=== PATIENT | female | born 1975 | race Caucasian/White ===

== ENCOUNTER → 2018-06-25 | Outpatient (CLI) | payer BC ==
[2018-06-25 12:26] LABS: Calcium 10.2 mg/dL (8.4-10.2); Carbon Dioxide 29 mmol/L (22-30); Chloride 105 mmol/L (98-107); Phosphorus 4.1 mg/dL (2.5-4.5); Uric Acid 3.3 mg/dL (3.7-7.4)
== END | disposition home or self-care (01) ==
LOC: LABWHC1 11:40
PROVIDERS: ATTEND Urology
DX: N20.0 Calculus of kidney (principal)
CPT/HCPCS: 36415; 82310; 82374; 82435; 82565; 83970; 84100; 84550

== ENCOUNTER → 2018-06-27 | Outpatient (CLI) | payer BC ==
[2018-06-27 13:36] LABS: Calcium 9.9 mg/dL (8.4-10.2); Carbon Dioxide 29 mmol/L (22-30); Chloride 104 mmol/L (98-107); Phosphorus 4.1 mg/dL (2.5-4.5)
[2018-06-27 17:04] LABS: Creatinine 24 Hour,Urine 998.8 mg/24hr (800.0-1800.0)
== END | disposition home or self-care (01) ==
LOC: LABWHC1 12:24
PROVIDERS: ATTEND Urology
DX: N20.0 Calculus of kidney (principal)
CPT/HCPCS: 36415; 81050; 82310; 82340; 82374; 82435; 82565; 82570; 83735; 83945; 83970; 84100; 84300; 84550; 84560

== ENCOUNTER → 2021-02-24 | Outpatient (CLI) | payer BC ==
--- NOTE | 2021-02-24 12:49 | US ---
EXAMINATION TYPE: US venous doppler duplex LE RT DATE OF EXAM: 02/24/2021 11:58 AM COMPARISON: NONE CLINICAL HISTORY: I80.9 PHLEBITIS AND THROMBOPHLEBITIS. Pain SIDE PERFORMED: Right TECHNIQUE: The lower extremity deep venous system is examined utilizing real time linear array sonog jayro with graded compression, doppler sonography and color-flow sonography. VESSELS IMAGED: Common Femoral Vein Deep Femoral Vein Greater Saphenous Vein * Femoral Vein Popliteal Vein Small Saphenous Vein * Proximal Calf Veins (* superficial vessels) Right Leg: Negative for DVT IMPRESSION: 1. No evidence of deep venous thrombosis in the right lower extremity.
== END | disposition home or self-care (01) ==
LOC: RADUSWWP 11:25
PROVIDERS: ATTEND Orthopaedic Surgery
DX: I80.9 Phlebitis and thrombophlebitis of unspecified site (principal)

== ENCOUNTER 2022-05-15 22:08 | Emergency (ER) | payer BC, OTHER ==
[2022-05-15 22:54] VITALS: BP 122/81; PULSE 76; RESP 18; TEMP 98
--- NOTE | 2022-05-16 01:32 | ED ---
Extremity Problem HPI - General Chief complaint: Extremity Problem,Nontraumatic Stated complaint: Left Knee and auguste pain Time Seen by Provider: 05/16/22 01:21 Source: patient, RN notes reviewed Mode of arrival: ambulatory Limitations: no limitations - History of Present Illness Initial comments: Patient presents to the right side prior left knee pain which has been present for 2 weeks. 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 Patient states she is getting some popping and locking sensations. Patient states she is now getting some pain and tenderness in her calf area. She is also complaining of some swelling distally. Patient states she also is getting some pain in the right lower leg but believes this is because she is been favoring the left leg. Patient denies any hip or ankle pain. Patient denies any direct trauma. No history of arthritis. No history of rheumatoid arthritis or inflammatory arthritis. Patient denying any pain in other joints. - Related Data Home Medications Medication Instructions Recorded Confirmed Naproxen [Naprosyn] 375 mg PO Q12HR 06/13/15 06/13/15 Previous Rx's Medication Instructions Recorded Hydrocortisone/Pramoxine 1 applicate RECTAL QID PRN #1 06/13/15 [Proctofoam-Hc 1%-1% Foam] bottle Ketorolac [Toradol] 10 mg PO Q6HR #20 tab 06/13/15 Acetaminophen Tab [Tylenol Tab] 500 mg PO Q6H PRN #24 tablet 05/16/22 Naproxen [Naprosyn] 375 mg PO Q12HR PRN #20 tablet 05/16/22 Allergies Allergy/AdvReac Type Severity Reaction Status Date / Time Penicillins Allergy Unknown Verified 05/15/22 22:54 Review of Systems ROS Statement: Those systems with pertinent positive or pertinent negative responses have been documented in the HPI. ROS Other: All systems not noted in ROS Statement are negative. Past Medical History Additional Past Medical History / Comment(s): brain tumor History of Any Multi-Drug Resistant Organisms: None Reported Past Surgical History: Appendectomy, Cholecystectomy, Tubal Ligation Additional Past Surgical History / Comment(s): D&C Past Psychological History: No Psychological Hx Reported Smoking Status: Never smoker Past Alcohol Use History: None Reported Past Drug Use History: None Reported General Exam Limitations: no limitations General appearance: alert, in no apparent distress Head exam: Present: atraumatic, normocephalic, normal inspection Eye exam: Present: normal appearance, PERRL, EOMI. Absent: scleral icterus, conjunctival injection, periorbital swelling ENT exam: Present: normal exam, mucous membranes moist Neck exam: Present: normal inspection, full ROM. Absent: tenderness, meningismus, lymphadenopathy Respiratory exam: Present: normal lung sounds bilaterally. Absent: respiratory distress, wheezes, rales, rhonchi, stridor Cardiovascular Exam: Present: regular rate, normal rhythm, normal heart sounds. Absent: systolic murmur, diastolic murmur, rubs, gallop, clicks GI/Abdominal exam: Present: soft, normal bowel sounds. Absent: distended, tenderness, guarding, rebound, rigid Extremities exam: Present: normal inspection, full ROM, tenderness (Tender about the left knee and somewhat distally into the calf area.), normal capillary refill, pedal edema (Scant bilateral edema), calf tenderness (Left calf), other (No right knee or calf tenderness, no erythema, full range of motion with pain). Absent: joint swelling Left Hip exam: Present: normal inspection, full ROM. Absent: tenderness Upper Leg exam: Present: normal inspection Knee exam: Present: full ROM, tenderness, swelling, full knee extension. Absent: abrasion, laceration, ecchymosis, deformity, crepitus, dislocation, erythema, effusion, posterior draw sign, pain/laxity with valgus, pain/laxity with varus Lower Leg exam: Present: normal inspection, tenderness. Absent: full ROM, abrasion, laceration, ecchymosis, deformity, crepitus, dislocation, erythema, palpable cord, Homans' sign Ankle exam: Present: normal inspection, full ROM, tenderness. Absent: swelling, ecchymosis, erythema Foot/Toe exam: Present: normal inspection, full ROM. Absent: tenderness, swelling, abrasion, ecchymosis, erythema Neurovascular tendon exam: Present: no vascular compromise. Absent: pulse deficit, abnormal cap refill, motor deficit, pallor, abnormal 2-point discrimination, decreased fine/light touch, foot drop Back exam: Present: normal inspection. Absent: rash noted Neurological exam: Present: alert, oriented X3, CN II-XII intact Psychiatric exam: Present: normal affect, normal mood Skin exam: Present: warm, dry, intact, normal color. Absent: rash Course Vital Signs 05/15/22 22:52 Temperature 98 F Pulse Rate 76 Respiratory 18 Rate Blood Pressure 122/81 O2 Sat by Pulse 100 Oximetry Medical Decision Making - Medical Decision Making Central G appears to be musculoskeletal in origin. Patient is getting some clicking sensations which does bring into play pathology such as meniscus injury. Patient does have some swelling about the knee. This does not appear to be infectious in etiology. Patient has full range of motion with both passive and active range of motion. This does increase the pain. No skin rashes or lesions. Mild calf tenderness. I think this is unlikely to be DVT. However we'll add on a d-dimer as ultrasound is not here. We will also check inflammatory markers. Does not appear to be consistent with gouty arthritis or infectious arthritis. Patient's d-dimer is negative. Patient does have a small joint effusion noted. Again, no evidence of infectious process. We'll apply an immobilizer. Patient will be given work restrictions. Follow-up with orthopedics. Patient was told to return to the ER for any signs or symptoms worsen. Told to return immediately if any other problems arise. All questions answered. Treatment plan discussed. Patient in agreement Every effort has been made to ensure accuracy of this dictation. However, due to the limitations of electronic medical records and dictation devices, errors in charting still occur. Superintendent Laundry Dr. Verde - Lab Data Result diagrams: 05/16/22 01:46 05/16/22 01:46 Lab Results 05/16/22 05/16/22 05/16/22 Range/Units 01:46 01:46 02:21 WBC 6.8 (3.8-10.6) k/uL RBC 4.27 (3.80-5.40) m/uL Hgb 13.3 (11.4-16.0) gm/dL Hct 41.0 (34.0-46.0) % MCV 96.0 (80.0-100.0) fL MCH 31.2 (25.0-35.0) pg MCHC 32.5 (31.0-37.0) g/dL RDW 12.8 (11.5-15.5) % Plt Count 192 (150-450) k/uL MPV 8.4 Neutrophils % 53 % Lymphocytes % 36 % Monocytes % 3 % Eosinophils % 6 % Basophils % 1 % Neutrophils # 3.6 (1.3-7.7) k/uL Lymphocytes # 2.5 (1.0-4.8) k/uL Monocytes # 0.2 (0-1.0) k/uL Eosinophils # 0.4 (0-0.7) k/uL Basophils # 0.1 (0-0.2) k/uL ESR 5 (0-20) mm/hr D-Dimer <0.17 (<0.60) mg/L FEU Sodium 137 (137-145) mmol/L Potassium 3.7 (3.5-5.1) mmol/L Chloride 102 (98-107) mmol/L Carbon Dioxide 27 (22-30) mmol/L Anion Gap 8 mmol/L BUN 21 H (7-17) mg/dL Creatinine 0.93 (0.52-1.04) mg/dL Est GFR (CKD-EPI)AfAm 85 (>60 ml/min/1.73 sqM) Est GFR (CKD-EPI)NonAf 74 (>60 ml/min/1.73 sqM) Glucose 85 (74-99) mg/dL Uric Acid 3.8 (3.7-7.4) mg/dL Calcium 9.3 (8.4-10.2) mg/dL C-Reactive Protein <0.5 (<1.0) mg/dL - Radiology Data Radiology results: report reviewed, image reviewed Disposition Clinical Impression: Knee effusion, left, Left leg pain Disposition: HOME SELF-CARE Condition: Good Instructions (If sedation given, give patient instructions): Swollen Knee Joint (ED) Additional Instructions: return to the ER immediately if any symptoms worsen, new symptoms arise, or any other problems develop. Follow-up with the orthopedic physician as directed. Prescriptions: Naproxen [Naprosyn] 375 mg PO Q12HR PRN #20 tablet PRN Reason: Pain Acetaminophen Tab [Tylenol Tab] 500 mg PO Q6H PRN #24 tablet PRN Reason: Pain Is patient prescribed a controlled substance at d/c from ED?: No Referrals: Renny Alvarado MD [Primary Care Provider] - 1-2 days Maddy Ceballos DO [Doctor of Osteopathic Medicine] - 05/22/22 Time of Disposition: 03:17
[2022-05-16 02:02] LABS: Basophils # (A) 0.1 k/uL (0-0.2); Basophils % (A) 1 %; Eosinophils # (A) 0.4 k/uL (0-0.7); Eosinophils % (A) 6 %; HGB 13.3 gm/dL (11.4-16.0); Lymphocytes # (A) 2.5 k/uL (1.0-4.8); Lymphocytes % (A) 36 %; MCH 31.2 pg (25.0-35.0); MCHC 32.5 g/dL (31.0-37.0); Mean Platelet Volume 8.4; Monocytes # (A) 0.2 k/uL (0-1.0); Monocytes % (A) 3 %; Neutrophils # (A) 3.6 k/uL (1.3-7.7); Neutrophils % (A) 53 %; Platelet Count 192 k/uL (150-450); RBC 4.27 m/uL (3.80-5.40); RDW 12.8 % (11.5-15.5); WBC 6.8 k/uL (3.8-10.6)
--- NOTE | 2022-05-16 02:07 | XR ---
EXAMINATION TYPE: XR knee complete LT DATE OF EXAM: 05/16/2022 COMPARISON: NONE HISTORY: Knee pain and swelling TECHNIQUE: 3 views FINDINGS: There is no evidence of fracture nor dislocation. There is small knee joint effusion. Joint spaces are fairly normal. IMPRESSION: Small knee joint effusion. No fracture.
[2022-05-16 02:28] LABS: African American GFR (CKD) 85 (>60 ml/min/1.73 sqM); Anion Gap 8 mmol/L; Blood Urea Nitrogen 21 mg/dL (7-17); C Reactive Protein <0.5 mg/dL (<1.0); Calcium 9.3 mg/dL (8.4-10.2); Carbon Dioxide 27 mmol/L (22-30); Chloride 102 mmol/L (98-107); Glucose 85 mg/dL (74-99); Non-African American GFR(CKD) 74 (>60 ml/min/1.73 sqM); Potassium 3.7 mmol/L (3.5-5.1); Sodium 137 mmol/L (137-145); Uric Acid 3.8 mg/dL (3.7-7.4)
[2022-05-16 03:10] LABS: Erythrocyte Sedimentation Rate 5 mm/hr (0-20)
== END 2022-05-16 03:49 | disposition home or self-care (01) ==
LOC: EC 22:08
DX: M25.462 Effusion, left knee (principal); Z88.0 Allergy status to penicillin; Z79.899 Other long term (current) drug therapy
CPT/HCPCS: 36415; 80048; 84550; 85025; 85379; 85652; 86140; 99283

== ENCOUNTER → 2022-05-17 | Outpatient (CLI) | payer BC ==
[2022-05-17 18:06] LABS: Appearance,BF Cloudy; Color,BF Red; Nucleated Cells, Body Fluid 1625 /uL; RBC, Body Fluid 37750 /uL
[2022-05-17 18:12] LABS: Mononuclear WBC,Body Fluid 75 %; Polynuclear WBC,Body Fluid 25 %; Total Cells Counted,Body Fluid 100
[2022-05-17 22:44] LABS: HCT 41.4 % (37.2-46.3); HGB 13.4 g/dL (12.0-15.0); MCH 31.3 pg (27.0-32.0); MCHC 32.4 g/dL (32.0-37.0); MCV 96.7 fL (80.0-97.0); Mean Platelet Volume 11.3 fL (9.5-12.2); NRBC Per 100 WBC 0 /100 WBCS (0.0-0.0); Platelet Count 201 X 10*3/uL (140-440); RBC 4.28 X 10*6/uL (4.10-5.20); RDW 13.3 % (11.5-14.5); WBC 5.85 X 10*3/uL (4.50-10.00)
[2022-05-17 23:24] LABS: Streptolysin O Ab(ASO) 59 IU/L (0-200)
[2022-05-17 23:29] LABS: C Reactive Protein <0.30 mg/dL (0.00-0.80); Rheumatoid Factor, Qnt <10 IU/mL (0-15)
[2022-05-17 23:31] LABS: Erythrocyte Sedimentation Rate 3 mm/Hr (0-20)
[2022-05-18 00:58] LABS: Synovial Fld Crystals None Seen (None Seen)
[2022-05-18 12:05] LABS: HLA B27 NEGATIVE
== END | disposition home or self-care (01) ==
LOC: LABWHC1 16:16
PROVIDERS: ATTEND Physician Assistant
DX: M25.462 Effusion, left knee (principal); M25.562 Pain in left knee
CPT/HCPCS: 36415; 84443; 85027; 85652; 86038; 86060; 86140; 86431; 86618; 86812; 87070; 87075; 87205; 89050; 89060